=== PATIENT | male | born 1965 | race Caucasian/White ===

== ENCOUNTER 2016-08-20 23:59 | Emergency (ER) | payer OTHER ==
[~2016-08-20 23:59] MED LIST: ACETAMINOPHEN325 MG PO; ACTOS15 MG PO; ASPIRIN ENTERI325 M1 PO; AUGMENTIN875 MG PO; BACTROBAN; BACTROBAN22 GM TP; CELEXA20 M1 PO; CELEXA20 MG PO; CLEOCIN PO; CLEOCIN150 MG PO; CLINDAMYCIN HC300 MG PO; ECONAZOLE 1% TOP; FLEXERIL PO; FLEXERIL10 MG PO; FLORASTOR250 M1 PO; GABAPENTIN400 MG PO; GLUCOPHAGE500 M1 PO; GLUCOPHAGE500 MG PO; GLUCOTROL PO; GLUCOTROL10 MG PO; HYDROCODON-ACE1 EAC7 PO; HYDROCODONE-APA1 T43 PO; HYDROXYZINE HCL10 MG PO; KEFLEX500 MG PO; LAXATIVE OF CHOICE; LEVEMIR FL100 UNIT/1 SQ; LEVEMIR FL100 UNIT/1 SUBQ; LISINOPRIL; LISINOPRIL10 MG; LISINOPRIL10 MG PO; LISINOPRIL2.5 MG PO; LOPRESSOR; LORTAB 7.5-5001 TAB PO; LYRICA75 MG PO; METFORMIN; METFORMIN PO; METOCLOPRAMIDE H5 MG PO; METOPROLOL TAR25 MG PO; METOPROLOL TART25 MG PO; NEURONTIN300 MG PO; NICOTINE TRANSD14 MG EXT; NORCO 5/325 MG PO; NOVOLIN 70/30 V10 M1 SUBQ; NOVOLIN 70100 UNITS/ SQ; NOVOLOG MI100 UNIT/1 SQ; NOVOLOG SQ; NOVOLOG100 U/M1; NOVOLOG100 U/M2 SQ; NOVOLOG100 U/M2 SUBQ; NOVOLOG100 U/ML SUBQ; OMEPRAZOLE40 MG PO; ORBACTIV400 MG IV; OXYCODONE-ACET1 EACH PO; PERCOCET 10/3251 TAB PO; PERCOCET 5-3251 TAB PO; PERCOCET5/325 PO; PIOGLITAZONE HC15 MG PO; PRAVACHOL10 MG PO; PRAVASTATIN SOD40 MG PO; PRILOSEC40 MG PO; PROZAC; PROZAC10 M1; PROZAC10 M1 PO; PROZAC10 MG PO; REGLAN5 MG PO; ROCEPHIN2 G/VIAL IV; SANTYL15 G1 TOP; SANTYL15 G1 TP; ST. JOSEPH ASP325 MG PO; TRAMADOL HCL50 M2 PO; TRAZODONE PO; TYLENOL #3 PO; TYLENOL 650 MG PO; TYLENOL325 M1 PO; UREA142 G1 TOP; VIBRAMYCIN100 M1 PO; VICODIN 5/500 T1 TAB PO; VICTOZA0.6 MG/0.1; VISTARIL50 MG PO; ZESTRIL10 MG PO; ZOCOR PO; ZYVOX600 MG PO; [UNRECOGNIZED DRUG - OTHER] SQ
[2016-08-21 02:06] LABS: BASOPHIL# 0.1 X10e3 (0-0.3); BASOPHIL% 0.6 % (0-2.5); EOSINOPHIL# 0.3 X10e3 (0-0.7); EOSINOPHIL% 2.2 % (0.0-7.0); HEMATOCRIT 35.2 % (38.0-50.0); HEMOGLOBIN 11.5 gm/dL (13.0-16.0); LYMPHOCYTE# 2.7 X10e3 (1.0-3.5); LYMPHOCYTE% 22.6 % (17.0-45.0); MEAN CELL VOLUME 86.2 FL (83-96); MEAN CORPUSCULAR HEMOGLOBIN 28.3 PG (28-34); MEAN CORPUSCULAR HGB CONC 32.8 g/dL (30-36); MEAN PLATELET VOLUME 7.6 FL (6.5-11.5); MONOCYTE# 1.3 X10e3 (0-1.0); MONOCYTE% 10.9 % (3.0-12.0); NEUTROPHIL# 7.5 X10e3 (1.5-7.1); NEUTROPHIL% 63.7 % (40-75); PLATELET COUNT 254 X10e3 (140-420); RED BLOOD COUNT 4.08 X10e (3.90-5.60); RED CELL DISTRIBUTION WIDTH 13.2 % (11.0-15.5); WHITE BLOOD COUNT 11.8 X10e3 (4.0-10.5)
[2016-08-21 02:08] LABS: DIFF IND NO
[2016-08-21 02:29] LABS: BUN/CREATININE RATIO 21.42; CALCIUM SERUM 9.2 mg/dL (8.4-10.2); CREATININE SERUM 0.7 mg/dL (0.6-1.4); GLOM FILT RATE Estimated 107.8 mL/min (>60); POTASSIUM 4.7 mmol/L (3.5-5.1)
[2016-10-11] MEDS ORDERED: GLUCOPHAGE500 MG PO (07:28)
[2016-10-11] MEDS ORDERED: HYDROCODON-ACE1 EAC5 PO (07:39)
[2017-01-23] MEDS ORDERED: HYDROCODON-ACE1 EAC5 PO (10:01)
[2017-01-23] MEDS ORDERED: NEURONTIN300 MG PO (10:01)
[2017-01-23] MEDS ORDERED: PATIENT'S PHARMACY (10:01)
[2017-01-23] MEDS ORDERED: HARVONI PO (10:02)
[2017-01-23] MEDS ORDERED: EFFEXOR PO (10:04)
[2017-01-23] MEDS ORDERED: LEVEMIR100 UNITS/ SUBQ (10:05)
[2017-01-23] MEDS ORDERED: NOVOLOG100 UNITS/ SUBQ (10:05)
== END 2016-08-21 03:30 | disposition home or self-care (01) ==
LOC: CED 23:59
PROVIDERS: Emergency Medicine
DX: L03.116 Cellulitis of left lower limb (principal); E11.9 Type 2 diabetes mellitus without complications; F41.9 Anxiety disorder, unspecified; F32.9 Major depressive disorder, single episode, unspecified; I10 Essential (primary) hypertension; F17.210 Nicotine dependence, cigarettes, uncomplicated; Z86.19 Personal history of other infectious and parasitic diseases; Z86.14 Personal history of Methicillin resistant Staphylococcus aureus infection; Z90.49 Acquired absence of other specified parts of digestive tract; Z86.73 Personal history of transient ischemic attack (TIA), and cerebral infarction without residual deficits; Z79.4 Long term (current) use of insulin; Z79.899 Other long term (current) drug therapy
CPT/HCPCS: 36415; 80048; 82947; 85025; 87040; 96361; 96365; 96368; 99284; J0295

== ENCOUNTER → 2016-09-04 | Outpatient (CLI) | payer OTHER ==
[~2016-09-04] MED LIST changes: +EFFEXOR PO; +HARVONI PO; +HYDROCODON-ACE1 EAC5 PO; +LEVEMIR100 UNITS/ SUBQ; +NOVOLOG100 UNITS/ SUBQ; +PATIENT'S PHARMACY
--- NOTE | ~2016-09-04 | CR230 ---
[facility] A Service of [facility] RADIOLOGY TEXT RESULTS PATIENT: MINA SMITH LOCATION: [facility] : 61 UNIT #: [id number] AGE: [address]: Сергей Monteiro MD SEX: M ORDER DR: [id number] [facility] [address] [place], [place] [address] [id number] O MR#: [id number] Acc #: [id number] NAME: MINA SMITH : 1965 SEX: M STUDY DATE/TIME: 09/04/2016 12:56 UNIT: [facility] ROOM: STUDY DESCRIPTION: CR Shoulder Min 2 View Rt Attending Physician: Сергей Monteiro M.D. Referring Physician: Сергей Monteiro M.D. Ordering Physician: Сергей Monteiro M.D. Primary Care Physician: Briana Pena M.D. MEDICAL IMAGING REPORT This report is preliminary unless electronic signature is present EXAM Right shoulder, 3 views. DATE OF EXAM 09/04/2016 HISTORY Right shoulder pain for 1 year with decreased range of motion, unable to raise arm above head. No known trauma. FINDINGS 3 views of the right shoulder demonstrate no fracture. There is degenerative change with subchondral cyst formation involving the right humeral head, and there is some narrowing of the glenohumeral joint. The right acromioclavicular joint appears normal. There is no soft tissue abnormality. IMPRESSION Degenerative change involving the right glenohumeral joint. No acute abnormality. Dictated by... Daniel Hannah M.D. THIS IS AN ELECTRONICALLY VERIFIED REPORT Daniel Hannah M.D. at 09/05/2016 8:03 AM ALEE/sage TD: 09/04/2016 20:53 JOB #: [id number] MEDICAL IMAGING REPORT [facility] A Service of [facility] & [facility] RADIOLOGY TEXT RESULTS PATIENT: MINA SMITH LOCATION: [facility] : 61 UNIT #: [id number] AGE: [address]: Сергей Monteiro MD SEX: M ORDER DR: Page 1 of 1 COPY
--- NOTE | ~2016-09-04 | CR151 ---
[facility] A Service of [facility] RADIOLOGY TEXT RESULTS PATIENT: MINA SMITH LOCATION: [facility] : 61 UNIT #: [id number] AGE: [address]: Сергей Monteiro MD SEX: M ORDER DR: [id number] [facility] [address] [place], [place] [address] [id number] O MR#: [id number] Acc #: [id number] NAME: MINA SMITH : 1965 SEX: M STUDY DATE/TIME: 09/04/2016 13:04 UNIT: [facility] ROOM: STUDY DESCRIPTION: CR Hip Min 2 Views Rt Attending Physician: Сергей Monteiro M.D. Referring Physician: Сергей Monteiro M.D. Ordering Physician: Сергей Monteiro M.D. Primary Care Physician: Briana Pena M.D. MEDICAL IMAGING REPORT This report is preliminary unless electronic signature is present EXAM Right hip, 2 views. DATE OF EXAM 09/04/2016 HISTORY Right hip pain for 1 year with no known trauma. FINDINGS 2 views of the right hip demonstrate no fracture. There is degenerative change with mild axial narrowing of the right hip joint. Some minimal osteophytic spurring is seen about the right femoral head. There is some minimal subchondral cyst formation involving the right femoral head. The bones are otherwise normally mineralized. There is no soft tissue abnormality. Degenerative changes involve the visualized lower lumbar spine. IMPRESSION Mild degenerative change involving the right hip. No acute abnormality. Dictated by... Daniel Hannah M.D. THIS IS AN ELECTRONICALLY VERIFIED REPORT Daniel Hannah M.D. at 09/05/2016 8:03 AM ALEE/sage TD: 09/04/2016 20:56 JOB #: [id number] MEDICAL IMAGING REPORT [facility] A Service of [facility] RADIOLOGY TEXT RESULTS PATIENT: MINA SMITH LOCATION: [facility] : 61 UNIT #: [id number] AGE: [address]: Сергей Monteiro MD SEX: M ORDER DR: Page 1 of 1 COPY
== END | disposition home or self-care (01) ==
LOC: CRAD 12:16
DX: M25.551 Pain in right hip (principal); M25.511 Pain in right shoulder
CPT/HCPCS: 73030; 73502

== ENCOUNTER → 2016-09-04 | Outpatient (CLI) | payer OTHER ==
[~2016-09-04] MED LIST changes: -EFFEXOR PO; -HARVONI PO; -LEVEMIR100 UNITS/ SUBQ; -NOVOLOG100 UNITS/ SUBQ; -PATIENT'S PHARMACY
--- NOTE | ~2016-09-04 | CR150 ---
[facility] A Service of [facility] & [facility] RADIOLOGY TEXT RESULTS PATIENT: MINA SMITH LOCATION: [facility] : 61 UNIT #: [id number] AGE: [address]: ALFREDA CLEMENT MD SEX: M ORDER DR: [id number] [facility] [address] [place], [place] [address] [id number] O MR#: [id number] Acc #: [id number] NAME: MINA SMITH : 1965 SEX: M STUDY DATE/TIME: 09/04/2016 13:02 UNIT: [facility] ROOM: STUDY DESCRIPTION: CR Hip Min 2 Views Lt Attending Physician: Alfreda Clement M.D. Referring Physician: Alfreda Clement M.D. Ordering Physician: Alfreda Clement M.D. Primary Care Physician: No Primary Care Physician MEDICAL IMAGING REPORT This report is preliminary unless electronic signature is present EXAM Left hip. HISTORY Left hip pain for 1 year. FINDINGS An AP view of the pelvis and lateral view of the left hip were obtained. There may be minimal joint space narrowing, but there is osteophyte formation or sclerosis. Degenerative changes in the L4-L5 disc space ate noted on the left. IMPRESSION There may be minimal joint space narrowing, left hip. Otherwise, the study appears normal. Dictated by... Bay Long M.D. THIS IS AN ELECTRONICALLY VERIFIED REPORT Bay Long M.D. at 09/05/2016 7:15 AM LC/machelle TD: 09/04/2016 17:43 JOB #: [id number] MEDICAL IMAGING REPORT Page 1 of 1 COPY
--- NOTE | ~2016-09-04 | CR184 ---
[facility] A Service of [facility] & [facility] RADIOLOGY TEXT RESULTS PATIENT: MINA SMITH LOCATION: [facility] : 61 UNIT #: [id number] AGE: [address]: ALFREDA CLEMENT MD SEX: M ORDER DR: [id number] [facility] [address] [place] [facility]. [place], [place] [address] [id number] O MR#: [id number] Acc #: [id number] NAME: MINA SMITH : 1965 SEX: M STUDY DATE/TIME: 09/04/2016 13:06 UNIT: [facility] ROOM: STUDY DESCRIPTION: CR Lumbar Spine Min 4 Views Attending Physician: Alfreda Clement M.D. Referring Physician: Alfreda Clement M.D. Ordering Physician: Alfreda Clement M.D. MEDICAL IMAGING REPORT This report is preliminary unless electronic signature is present EXAM Lumbar spine 5 views 09/04/2016 HISTORY Low back pain and bilateral hip pain for 1 year with no known trauma. FINDINGS 5 views of the lumbar spine demonstrate no fracture. The posterior vertebral body line is intact and there is no anterolisthesis or retrolisthesis. There is straightening of the lumbar spine with loss of the normal diet curve. There is mild disc space narrowing at L3-4 and there is moderate narrowing at L4-5 and L5-S1 with vacuum disc phenomenon at L4-5. Marginal osteophytes are seen from L3-L5 as well as a L1 and there is degenerative change involving the articular facets. IMPRESSION Multilevel degenerative change in the lumbar spine. No acute abnormality. Dictated by... Daniel Hannah M.D. THIS IS AN ELECTRONICALLY VERIFIED REPORT Daniel Hannah M.D. at 09/05/2016 8:03 AM ALEE/eleno TD: 09/04/2016 20:57 JOB #: [id number] MEDICAL IMAGING REPORT Page 1 of 1 COPY
== END | disposition home or self-care (01) ==
LOC: CRAD 12:02
DX: M25.552 Pain in left hip (principal); M47.896 Other spondylosis, lumbar region
CPT/HCPCS: 72110; 73502

== ENCOUNTER → 2016-09-07 | Outpatient (CLI) | payer OTHER ==
[~2016-09-07] MED LIST changes: +EFFEXOR PO; +HARVONI PO; +LEVEMIR100 UNITS/ SUBQ; +NOVOLOG100 UNITS/ SUBQ; +PATIENT'S PHARMACY
--- NOTE | ~2016-09-07 | MR113 ---
[facility] A Service of [facility] & [facility] RADIOLOGY TEXT RESULTS PATIENT: MINA SMITH LOCATION: [facility] : 61 UNIT #: [id number] AGE: [address]: Сергей Monteiro MD SEX: M ORDER DR: [id number] [facility] [address] [place], [place] [address] [id number] O MR#: [id number] Acc #: [id number] NAME: MINA SMITH : 1965 SEX: M STUDY DATE/TIME: 09/07/2016 8:06 UNIT: [facility] ROOM: STUDY DESCRIPTION: MR Lumbar Wo Contrast Attending Physician: Сергей Monteiro M.D. Referring Physician: Сергей Monteiro M.D. Ordering Physician: Сергей Monteiro M.D. Primary Care Physician: Briana Pena M.D. MRI CENTER REPORT This report is preliminary unless electronic signature is present. EXAM Lumbar MRI 09/07/2016 HISTORY Chronic low back pain radiating to both lower extremities over the past 10 years. No history of previous surgery. TECHNIQUE Multiplanar imaging of the lumbar spine was performed with short and long TR and compared with the previous scan from 01/07/2012. FINDINGS Alignment is unchanged from the previous examination. The L1-2 and L2-3 discs are normal. There is mild to moderate bilateral facet hypertrophy at each of these levels causing mild canal narrowing. The foramina are widely patent. At L3-4 the disc is narrowed and desiccated with broad-based posterior disc bulging that extends a little more to the right than to the left. This is accompanied by moderate facet hypertrophy and results in moderate central stenosis. Foraminal narrowing is mild on the left and moderate on the right. At L4-5 the disc is collapsed. There is broad-based posterior disc bulging and moderately severe facet hypertrophy. Severe central stenosis is seen with a high-grade block. Foraminal stenosis is moderate on the right and severe on the left. At L5-S1 the disc is normal. There is mild bilateral facet hypertrophy. The canal and foramina are widely patent. The conus is normal and nerve roots of the cauda equina have a normal STS. [facility] A Service of [facility] & [facility] RADIOLOGY TEXT RESULTS PATIENT: MINA SMITH [facility] : 61 UNIT #: [id number] AGE: [address]: Сергей Monteiro MD SEX: M ORDER DR: branching pattern. IMPRESSION 1. Severe central stenosis at L4-5 noted once again with a high-grade block. Foraminal narrowing at this level is moderate on the right and severe on the left. 2. Moderate central stenosis at L3-4 from disc and facet disease showing no significant change. Foraminal narrowing is asymmetrically worse on the right than on the left at the L3-4 level. The right foraminal narrowing at L3-4 is perhaps slightly increased from the previous examination. Dictated by... Gregory Rea M.D. THIS IS AN ELECTRONICALLY VERIFIED REPORT Gregory Rea M.D. at 09/08/2016 9:51 AM Ricky TD: 09/07/2016 18:04 JOB #: [id number] MRI CENTER REPORT Page 1 of 1 COPY
== END | disposition home or self-care (01) ==
LOC: CMRI 07:20
DX: M54.16 Radiculopathy, lumbar region (principal); M48.06 Spinal stenosis, lumbar region
CPT/HCPCS: 72148

== ENCOUNTER 2016-10-11 08:48 | Emergency (ER) | payer OTHER ==
--- NOTE | ~2016-10-11 | OR ---
Unit #: [id number] #: [id number] Patient: MINA SMITH [id number] [address] [place], [place] [address] [id number] MR#: [id number] NAME: MINA SMITH. ROOM: Date of Procedure: 10/11/2016 Admission Date: 10/11/2016 Surgeon: Сергей Monteiro M.D. : 1965 Attending Physician: Andrei Richard D.O. Primary Care Physician: Briana Pena M.D. OPERATIVE REPORT PREOPERATIVE DIAGNOSES Back pain, radiculopathy, degenerative disk disease, degenerative facet disease, spinal stenosis. POSTOPERATIVE DIAGNOSES Back pain, radiculopathy, degenerative disk disease, degenerative facet disease, spinal stenosis. PROCEDURE PERFORMED Lumbar epidural steroid injection with intravenous sedation and fluoroscopic guidance for needle localization. INDICATIONS FOR PROCEDURE The patient is a 51-year-old male with back and bilateral lower extremity pains due to previously mentioned diagnosis, most significant pathology is at the L4-L5 level, where there is severe stenosis as well as moderate stenosis at L3-L4 with combination of degenerative disk and facet disease. DESCRIPTION OF PROCEDURE The patient was placed in a seated position. Standard monitors were applied. 2 mg of Versed were given for sedation and anxiolysis, which were adequate. Vital signs remained stable. Sterile prep and drape then of the lumbar area was performed. The skin then at the L4-L5 level was localized with 1% lidocaine. An 18-gauge Hustead needle was then advanced via loss of resistance technique and fluoroscopic guidance in toward the epidural space. After confirming proper positioning with fluoroscopy and radiographic contrast, a dose of 80 mg of Depo-Medrol and 4 mL of 0.125% bupivacaine were deposited. The patient tolerated the procedure otherwise well and was discharged to the recovery room in stable condition. Dictated by... Сергей Monteiro M.D. LHP/modl TD: 10/11/2016 22:57 JOB #: [id number] Unit #: [id number] #: [id number] Patient: MINA SMITH OPERATIVE REPORT Page 1 of 1 X Сергей Monteiro MD X PROCEDURE OPERATIVE NOTE
[2016-10-11 09:58] LABS: BASOPHIL% 0.5 % (0-2.5); EOSINOPHIL# 0.2 X10e3 (0-0.7); EOSINOPHIL% 2.5 % (0.0-7.0); HEMATOCRIT 38.9 % (38.0-50.0); HEMOGLOBIN 12.9 gm/dL (13.0-16.0); LYMPHOCYTE# 1.8 X10e3 (1.0-3.5); LYMPHOCYTE% 23.7 % (17.0-45.0); MEAN CELL VOLUME 84.9 FL (83-96); MEAN CORPUSCULAR HEMOGLOBIN 28.2 PG (28-34); MEAN CORPUSCULAR HGB CONC 33.2 g/dL (30-36); MEAN PLATELET VOLUME 7.1 FL (6.5-11.5); MONOCYTE# 0.9 X10e3 (0-1.0); MONOCYTE% 12.1 % (3.0-12.0); NEUTROPHIL# 4.7 X10e3 (1.5-7.1); NEUTROPHIL% 61.2 % (40-75); PLATELET COUNT 243 X10e3 (140-420); RED BLOOD COUNT 4.59 X10e (3.90-5.60); RED CELL DISTRIBUTION WIDTH 13.1 % (11.0-15.5); WHITE BLOOD COUNT 7.7 X10e3 (4.0-10.5)
[2016-10-11 10:00] LABS: DIFF IND NO
[2016-10-11 10:13] LABS: BUN/CREATININE RATIO 16.25; CREATININE SERUM 0.8 mg/dL (0.6-1.4)
[2016-10-11 10:18] LABS: POTASSIUM 5.5 mmol/L (3.5-5.1)
[2017-01-23] MEDS ORDERED: HYDROCODON-ACE1 EAC5 PO (10:01)
[2017-01-23] MEDS ORDERED: PATIENT'S PHARMACY (10:01)
[2017-01-23] MEDS ORDERED: NEURONTIN300 MG PO (10:01)
[2017-01-23] MEDS ORDERED: HARVONI PO (10:02)
[2017-01-23] MEDS ORDERED: EFFEXOR PO (10:04)
[2017-01-23] MEDS ORDERED: NOVOLOG100 UNITS/ SUBQ (10:05)
[2017-01-23] MEDS ORDERED: LEVEMIR100 UNITS/ SUBQ (10:05)
== END 2016-10-11 13:05 | disposition home or self-care (01) ==
LOC: CED 08:48
PROVIDERS: Physician Assistant
DX: L03.114 Cellulitis of left upper limb (principal); L03.113 Cellulitis of right upper limb; E87.5 Hyperkalemia; E11.65 Type 2 diabetes mellitus with hyperglycemia; I10 Essential (primary) hypertension; B19.20 Unspecified viral hepatitis C without hepatic coma; F41.9 Anxiety disorder, unspecified; F17.210 Nicotine dependence, cigarettes, uncomplicated; Z79.4 Long term (current) use of insulin; Z79.899 Other long term (current) drug therapy
CPT/HCPCS: 36415; 80048; 82947; 85025; 96365; 96366; 99284; J3370

== ENCOUNTER → 2016-10-11 | Day surgery (SDC) | payer OTHER ==
[~2016-10-11] MED LIST changes: -EFFEXOR PO; -HARVONI PO; -LEVEMIR100 UNITS/ SUBQ; -NOVOLOG100 UNITS/ SUBQ; -PATIENT'S PHARMACY
--- NOTE | ~2016-10-11 | OR ---
Unit #: [id number] #: [id number] Patient: MINA SMITH [id number] [address] [address] [id number] O MR#: [id number] NAME: MINA SMITH. ROOM: Date of Procedure: 10/11/2016 Admission Date: 10/11/2016 Surgeon: Сергей Monteiro M.D. : 1965 Attending Physician: Сергей Monteiro M.D. Primary Care Physician: Briana Pena M.D. OPERATIVE REPORT PREOPERATIVE DIAGNOSES Back pain, radiculopathy, spinal stenosis, degenerative disk disease, facet disease. POSTOPERATIVE DIAGNOSES Back pain, radiculopathy, spinal stenosis, degenerative disk disease, facet disease. PROCEDURE PERFORMED Lumbar epidural steroid injection with intravenous sedation and fluoroscopic guidance for needle localization. INDICATIONS FOR PROCEDURE The patient is a 51-year-old male with back and bilateral lower extremity pain due to multilevel degenerative change. Plan is for trial of epidural steroids. Risks and benefits of all which have been reviewed. DESCRIPTION OF PROCEDURE The patient was placed in a seated position. Standard monitors were applied. Sterile prep and drape then of the lumbar area was performed. 2 mg of Versed were given for sedation and anxiolysis, which were adequate. Vital signs remained stable. Sterile prep and drape then of the lumbar area was performed. The skin then at the L4-L5 level was localized with 1% lidocaine. An 18-gauge Hustead needle was then advanced via loss of resistance technique and fluoroscopic guidance in toward the epidural space. After confirming proper positioning with fluoroscopy and radiographic contrast, 80 mg of Depo-Medrol and 6 mL of 0.125% bupivacaine were deposited. The patient tolerated the procedure otherwise well and was discharged to the recovery room in stable condition. Dictated by... John Perales/jorge alberto TD: 10/26/2016 10:45 JOB #: [id number] Unit #: [id number] #: [id number] Patient: MINA SMITH OPERATIVE REPORT Page 1 of 1 X Сергей Monteiro MD X PROCEDURE OPERATIVE NOTE
== END | disposition home or self-care (01) ==
LOC: CCSC 07:01
DX: M51.16 Intervertebral disc disorders with radiculopathy, lumbar region (principal); M48.06 Spinal stenosis, lumbar region
CPT/HCPCS: 82947; J0461; J1040; J2250; J2310

== ENCOUNTER 2016-12-07 10:54 | Emergency (ER) | payer OTHER ==
[~2016-12-07] VITALS: Ht 182.9 cm; Wt 65.8 kg
[2017-01-23] MEDS ORDERED: HYDROCODON-ACE1 EAC5 PO (10:01)
[2017-01-23] MEDS ORDERED: NEURONTIN300 MG PO (10:01)
[2017-01-23] MEDS ORDERED: PATIENT'S PHARMACY (10:01)
[2017-01-23] MEDS ORDERED: HARVONI PO (10:02)
[2017-01-23] MEDS ORDERED: EFFEXOR PO (10:04)
[2017-01-23] MEDS ORDERED: LEVEMIR100 UNITS/ SUBQ (10:05)
[2017-01-23] MEDS ORDERED: NOVOLOG100 UNITS/ SUBQ (10:05)
== END 2016-12-07 11:52 | disposition home or self-care (01) ==
LOC: CED 10:54
DX: L02.416 Cutaneous abscess of left lower limb (principal); E11.9 Type 2 diabetes mellitus without complications; I10 Essential (primary) hypertension; F17.200 Nicotine dependence, unspecified, uncomplicated; Z90.49 Acquired absence of other specified parts of digestive tract; Z79.4 Long term (current) use of insulin; Z79.899 Other long term (current) drug therapy
CPT/HCPCS: 10060; 99283

== ENCOUNTER 2016-12-10 14:50 | Emergency (ER) | payer OTHER ==
[~2016-12-10] VITALS: Ht 182.9 cm; Wt 65.8 kg
[2017-01-23] MEDS ORDERED: NEURONTIN300 MG PO (10:01)
[2017-01-23] MEDS ORDERED: PATIENT'S PHARMACY (10:01)
[2017-01-23] MEDS ORDERED: HYDROCODON-ACE1 EAC5 PO (10:01)
[2017-01-23] MEDS ORDERED: HARVONI PO (10:02)
[2017-01-23] MEDS ORDERED: EFFEXOR PO (10:04)
[2017-01-23] MEDS ORDERED: LEVEMIR100 UNITS/ SUBQ (10:05)
[2017-01-23] MEDS ORDERED: NOVOLOG100 UNITS/ SUBQ (10:05)
== END 2016-12-10 15:55 | disposition home or self-care (01) ==
LOC: CFTX 14:50 → CED 14:50 → CFTX 15:27
DX: L02.416 Cutaneous abscess of left lower limb (principal); I10 Essential (primary) hypertension; E11.9 Type 2 diabetes mellitus without complications; F17.200 Nicotine dependence, unspecified, uncomplicated; Z86.19 Personal history of other infectious and parasitic diseases; Z79.899 Other long term (current) drug therapy
CPT/HCPCS: 10060; 99283